=== PATIENT | female | born 1960 | race African-American/Black ===

== ENCOUNTER 2017-10-30 12:57 | Emergency (ER) | payer OTHER ==
[~2017-10-30] VITALS: Ht 152.4 cm; Wt 100.0 kg
[~2017-10-30 12:57] MED LIST: AMLO-512 PO; ATEN25TA PO; CLON-570 PO; GABA-529 PO; HYDR25TA PO; LISI30TA4 PO
[2017-10-30] MEDS ORDERED: ALBUTEROL SULFATE 2.5 MG/0.5 ML NEB SOLUTION NEB ONE (14:15)
[2017-10-30] MEDS ORDERED: IPRATROPIUM BROMIDE 0.5 MG/2.5 ML NEB SOLUTION NEB ONE (14:15)
[2017-10-30 15:17] VITALS: BP 128/78
== END 2017-10-30 16:01 | disposition home or self-care (01) ==
LOC: EMS 12:57
DX: J18.9 Pneumonia, unspecified organism (principal); I10 Essential (primary) hypertension; F17.210 Nicotine dependence, cigarettes, uncomplicated; Z88.1 Allergy status to other antibiotic agents; Z88.6 Allergy status to analgesic agent; Z91.040 Latex allergy status
CPT/HCPCS: 71046; 94640; 99284; J7613

== ENCOUNTER 2018-06-28 17:56 | Emergency (ER) | payer OTHER ==
[~2018-06-28] VITALS: Ht 154.9 cm; Wt 77.3 kg
[2018-06-28] MEDS ORDERED: BACL10TA PO (18:16)
[2018-06-28] MEDS ORDERED: CYCLOBENZAPRINE HCL 10 MG TABLET PO ONE (19:15)
[2018-06-28] MEDS ORDERED: AMLO-511 PO (19:28)
[2018-06-28] MEDS ORDERED: CLON.3 PO (19:28)
[2018-06-28] MEDS: ACETAMINOPHEN 500 MG TABLET PO ONE ×2 (19:29→19:31)
[2018-06-28 19:33] VITALS: BP 152/108
[2018-06-28] MEDS ORDERED: DEXAMETHASONE SOD PHOS 4 MG/ML 5 ML VIAL IM ONE (20:00)
== END 2018-06-28 20:52 | disposition left against medical advice (07) ==
LOC: EMS 17:59
DX: M25.552 Pain in left hip (principal); G89.29 Other chronic pain; I10 Essential (primary) hypertension; Z88.1 Allergy status to other antibiotic agents; Z88.6 Allergy status to analgesic agent; Z91.040 Latex allergy status; Z79.899 Other long term (current) drug therapy; Z87.891 Personal history of nicotine dependence

== ENCOUNTER 2019-04-16 17:18 | Emergency (ER) | payer OTHER ==
[~2019-04-16] VITALS: Ht 152.4 cm; Wt 90.9 kg
[~2019-04-16 17:18] MED LIST changes: -AMLO-512 PO; +AMLO5TAB9 PO; +BACL10TA PO; -CLON-570 PO; +CLON.3 PO; -GABA-529 PO
[2019-04-16] MEDS ORDERED: DEXAMETHASONE 4 MG TABLET PO ONE (18:45)
[2019-04-16] MEDS ORDERED: DiphenhydrAMINE HCL 25 MG CAPSULE PO ONE (18:45)
[2019-04-16] MEDS ORDERED: PRAMOXINE HCL/BENZYL ALCOHOL 1% 35 GM GEL TP ONE (18:45)
[2019-04-16 19:16] VITALS: BP 138/78
== END 2019-04-16 19:17 | disposition home or self-care (01) ==
LOC: EMS 17:19
DX: T49.8X1A Poisoning by other topical agents, accidental (unintentional), initial encounter (principal); L25.0 Unspecified contact dermatitis due to cosmetics; R23.8 Other skin changes; I10 Essential (primary) hypertension; Y92.89 Other specified places as the place of occurrence of the external cause; Z88.1 Allergy status to other antibiotic agents; Z88.8 Allergy status to other drugs, medicaments and biological substances; Z91.040 Latex allergy status; Z79.899 Other long term (current) drug therapy
CPT/HCPCS: 99284; J8540

== ENCOUNTER 2019-07-01 13:49 | Emergency (ER) | payer OTHER ==
[~2019-07-01] VITALS: Ht 165.1 cm; Wt 90.9 kg
[2019-07-01] MEDS: DiphenhydrAMINE HCL 25 MG CAPSULE PO ONE (14:46)
[2019-07-01 15:30] VITALS: BP 130/69
[2019-07-01] MEDS: MUPIROCIN CALCIUM 2% 22 GM OINTMENT TP ONE (15:38)
== END 2019-07-01 15:44 | disposition home or self-care (01) ==
LOC: EMS 13:51
DX: L01.00 Impetigo, unspecified (principal); I10 Essential (primary) hypertension; Z87.891 Personal history of nicotine dependence; Z79.899 Other long term (current) drug therapy; Z88.6 Allergy status to analgesic agent; Z91.040 Latex allergy status; Z88.1 Allergy status to other antibiotic agents